=== PATIENT | male | born 1960 | race Caucasian/White ===

== ENCOUNTER 2024-04-14 21:56 | Inpatient (IN) | payer MEDICARE, OTHER ==
[~2024-04-14] VITALS: Ht 172.7 cm; Wt 75.7 kg
[2024-04-14 21:15] VITALS: BP 122/65; TEMP 97.9; O2SAT 95
[2024-04-14] MEDS ORDERED: POLY250017 PO (22:10)
[2024-04-14] MEDS ORDERED: metoprolol PO (22:10)
[2024-04-14] MEDS ORDERED: TAMS-3 PO (22:10)
[2024-04-14] MEDS ORDERED: GUAN1TAB PO (22:10)
[2024-04-14] MEDS ORDERED: AMOX875T2 PO (22:10)
[2024-04-14] MEDS ORDERED: OLAN10TA73 PO (22:10)
[2024-04-14] MEDS ORDERED: PANT40TA49 PO (22:10)
[2024-04-14] MEDS ORDERED: DIVA500T2 PO (22:10)
[2024-04-14] MEDS ORDERED: MAG HYDROX/AL HYDROX/SIMETH 30 ML LIQUID UDC PO PRN (23:15)
[2024-04-14] MEDS ORDERED: CLONAZEPAM 0.5 MG TABLET PO PRN (23:15)
[2024-04-14] MEDS: BLOOD SUGAR DIAGNOSTIC 1 EACH STRIP VI ONE (23:15)
[2024-04-14] MEDS ORDERED: MAGNESIUM HYDROXIDE 30 ML LIQUID UDC PO PRN (23:15)
[2024-04-15] MEDS: TEMAZEPAM 7.5 MG CAPSULE PO PRN (01:01)
[2024-04-15 07:43] LABS: ALBUMIN 3.1 g/dL (3.4-5.0); BILIRUBIN,TOTAL 0.5 mg/dL (0.2-1.0); CALCIUM 8.7 mg/dL (8.5-10.1); CREATININE 0.9 mg/dL (0.6-1.3); POTASSIUM 3.6 mmol/L (3.5-5.1); TOTAL PROTEIN, SERUM 6.3 g/dL (6.4-8.2)
[2024-04-15 08:48] VITALS: BP 100/54; TEMP 97.9; O2SAT 98
[2024-04-15] MEDS ORDERED: METO25TA6 PO (10:51)
[2024-04-15] MEDS ORDERED: DIVALPROEX 500 MG TABLET.DR PO SCH ×2 (11:45→12:00)
[2024-04-15 16:15] VITALS: BP 98/54; TEMP 98; O2SAT 98
[2024-04-15] MEDS ORDERED: OLANZAPINE 5 MG TABLET PO SCH (17:00)
[2024-04-15 20:13] VITALS: BP 101/54; TEMP 97.8; O2SAT 94
[2024-04-15] MEDS: OLANZAPINE 5 MG TABLET PO SCH (20:14)
[2024-04-15] MEDS: DIVALPROEX 500 MG TABLET.DR PO SCH (20:14)
[2024-04-16 08:01] VITALS: BP 111/74; TEMP 98.1; O2SAT 98
[2024-04-16 16:01] VITALS: BP 96/54; TEMP 98; O2SAT 98
[2024-04-16 20:16] VITALS: BP 104/64; TEMP 98.1; O2SAT 96
[2024-04-16] MEDS: ACETAMINOPHEN 325 MG TABLET PO PRN (22:56)
[2024-04-17 08:35] VITALS: BP 116/74; TEMP 98; O2SAT 98
[2024-04-17] MEDS ORDERED: METO50TA16 PO (13:48)
[2024-04-17] MEDS ORDERED: MULT-594 PO (14:22)
[2024-04-17] MEDS ORDERED: FERR-68 PO (14:22)
[2024-04-17] MEDS ORDERED: AMOX-430 PO (14:22)
[2024-04-17] MEDS ORDERED: MONT10TA33 PO (14:22)
[2024-04-17] MEDS ORDERED: ACET-73 PO (14:25)
[2024-04-17] MEDS ORDERED: POLY15DR31 OP (14:28)
[2024-04-17 15:42] VITALS: BP 96/49; TEMP 98; O2SAT 91
[2024-04-17] MEDS ORDERED: METOPROLOL TARTRATE 25 MG TABLET PO SCH (17:00)
[2024-04-17 20:10] VITALS: BP 111/62; TEMP 98.1; O2SAT 98
[2024-04-17] MEDS: TAMSULOSIN HCL 0.4 MG CAP.SR.24H PO SCH (20:40)
[2024-04-18] MEDS: PANTOPRAZOLE SODIUM 40 MG TABLET.DR PO SCH (07:22)
[2024-04-18 07:55] VITALS: BP 106/69; TEMP 98; O2SAT 96
[2024-04-18 15:20] VITALS: BP 105/66; TEMP 98; O2SAT 92
[2024-04-18 20:07] VITALS: BP 98/62; TEMP 98.2; O2SAT 96
[2024-04-19 07:58] VITALS: BP 112/65; TEMP 98; O2SAT 98
[2024-04-19] MEDS ORDERED: POLYVINYL ALCOHOL OPHT DROPS 15 ML BOTTLE EACHEYE PRN (10:15)
[2024-04-19 15:58] VITALS: BP 126/75; TEMP 98; O2SAT 99
[2024-04-19] MEDS: FERROUS SULFATE 325 MG TABEC PO SCH (17:57)
[2024-04-19 19:09] VITALS: BP 131/90; TEMP 98.2; O2SAT 99
[2024-04-19] MEDS: MONTELUKAST SODIUM 10 MG TABLET PO SCH (20:39)
[2024-04-20 08:12] VITALS: BP 100/71; TEMP 98.5; O2SAT 96
[2024-04-20] MEDS: MULTIVITAMINS,THERAPEUTIC TABLET PO SCH (09:02)
[2024-04-20 15:19] VITALS: BP 102/73; TEMP 98.7; O2SAT 98
[2024-04-20 20:18] VITALS: BP 106/68; TEMP 98.4; O2SAT 96
[2024-04-21 07:45] VITALS: BP 108/65; TEMP 97.8; O2SAT 99
[2024-04-21 16:50] VITALS: BP 99/66; TEMP 97.9; O2SAT 98
[2024-04-21 20:00] VITALS: BP 114/80; TEMP 98; O2SAT 96
[2024-04-22 07:45] VITALS: BP 117/75; TEMP 98.3; O2SAT 98
[2024-04-22 17:06] VITALS: BP 123/80; TEMP 98.1; O2SAT 98
[2024-04-22 20:09] VITALS: BP 116/76; TEMP 98.1; O2SAT 96
[2024-04-23 08:24] VITALS: BP 101/68; TEMP 98.4; O2SAT 98
[2024-04-23 16:13] VITALS: BP 91/57; TEMP 98.3; O2SAT 98
[2024-04-23 19:45] VITALS: BP 106/56; TEMP 98.1; O2SAT 98
[2024-04-23] MEDS: DIVALPROEX 500 MG TABLET.DR PO SCH (20:14)
[2024-04-24 08:01] VITALS: BP 101/65; TEMP 98; O2SAT 96
[2024-04-24 15:38] VITALS: BP_SYST 121; BP_SYST 129; BP_DIAS 87; TEMP 98; O2SAT 98
[2024-04-24 20:03] VITALS: BP 118/74; TEMP 98.1; O2SAT 98
[2024-04-25 09:40] VITALS: BP 115/85; TEMP 98.2; O2SAT 98
[2024-04-25 15:37] VITALS: BP 107/62; TEMP 98.4; O2SAT 97
[2024-04-25 20:00] VITALS: BP 108/60; TEMP 98.3; O2SAT 97
[2024-04-26 08:12] VITALS: BP 90/52; TEMP 98; O2SAT 98
[2024-04-26 15:45] VITALS: BP 107/74; TEMP 98; O2SAT 94
[2024-04-26 20:00] VITALS: BP 116/76; TEMP 98.1; O2SAT 97
[2024-04-27 07:57] VITALS: BP 90/52; TEMP 98; O2SAT 94
[2024-04-27 15:02] VITALS: BP 123/82; TEMP 96; O2SAT 96
[2024-04-27 20:17] VITALS: BP 127/76; TEMP 98; O2SAT 100
[2024-04-28 07:57] VITALS: BP 109/66; TEMP 97.6; O2SAT 98
[2024-04-28 16:21] VITALS: BP 91/53; TEMP 98; O2SAT 98
[2024-04-28 20:50] VITALS: BP 101/65; TEMP 98; O2SAT 98
[2024-04-29 08:00] VITALS: BP 115/68; TEMP 98.1; O2SAT 98
[2024-04-29 08:27] LABS: BASOPHILS # (AUTO) 0.1 K/UL (0.0-0.2); BASOPHILS % (AUTO) 1.1 % (0.0-2.0); EOSINOPHILS # (AUTO) 0.6 K/uL (0.0-0.7); HEMATOCRIT 47.4 % (36.7-47.1); HEMOGLOBIN 15.7 g/dL (12.5-16.3); LYMPHOCYTES % (AUTO) 31.8 % (20.5-51.5); MEAN CORPUSCULAR HGB CONC 33 g/dL (32.5-36.3); MEAN CORPUSCULAR VOLUME 84.5 fL (73.0-96.2); MONOCYTES # (AUTO) 0.8 K/uL (0.1-1.30); MONOCYTES % (AUTO) 12.1 % (0.0-11.0); NEUTROPHILS # (AUTO) 2.9 K/uL (1.8-8.9); PLATELET COUNT (AUTO) 178 K/uL (152-348); RED BLOOD CELL COUNT(AUTO) 5.61 MIL/uL (4.06-5.63); RED CELL DISTRIBUTION WIDTH 14.2 % (12.1-16.2); WHITE BLOOD COUNT (AUTO) 6.3 K/uL (3.6-10.2)
[2024-04-29 08:43] LABS: DIFFERENTIAL COMMENT 1
[2024-04-29 09:02] LABS: ALBUMIN 3.7 g/dL (3.4-5.0); BILIRUBIN,TOTAL 0.6 mg/dL (0.2-1.0); CALCIUM 9.3 mg/dL (8.5-10.1); CREATININE 0.8 mg/dL (0.6-1.3); POTASSIUM 3.9 mmol/L (3.5-5.1); TOTAL PROTEIN, SERUM 7.8 g/dL (6.4-8.2)
[2024-04-29 16:17] VITALS: BP 99/74; TEMP 98.1; O2SAT 98
[2024-04-29] MEDS: DIVALPROEX 500 MG TABLET.DR PO SCH (17:05)
[2024-04-29 20:07] VITALS: BP 113/79; TEMP 98; O2SAT 99
[2024-04-30 08:04] VITALS: BP 104/69; TEMP 98.1; O2SAT 98
== END 2024-04-30 15:35 | DRG 885 ==
LOC: ER 22:06 → GPS 22:56
PROVIDERS: ADMIT Psychiatry & Neurology Psychiatry; ATTEND Nurse Practitioner Acute Care
DX: F20.9 Schizophrenia, unspecified (principal); I11.0 Hypertensive heart disease with heart failure; E44.1 Mild protein-calorie malnutrition; I50.32 Chronic diastolic (congestive) heart failure; G40.909 Epilepsy, unspecified, not intractable, without status epilepticus; E88.09 Other disorders of plasma-protein metabolism, not elsewhere classified; J44.9 Chronic obstructive pulmonary disease, unspecified; E11.9 Type 2 diabetes mellitus without complications; K21.9 Gastro-esophageal reflux disease without esophagitis; Z85.828 Personal history of other malignant neoplasm of skin; Z86.011 Personal history of benign neoplasm of the brain; G31.84 Mild cognitive impairment of uncertain or unknown etiology; Z79.899 Other long term (current) drug therapy; N40.0 Benign prostatic hyperplasia without lower urinary tract symptoms
CPT/HCPCS: 36415; 80164; 85025